=== PATIENT | male | born 1965 | race Caucasian/White ===

== ENCOUNTER 2016-08-06 20:28 | Emergency (ER) | payer OTHER ==
[2016-08-06 20:41] VITALS: PULSE 82; TEMP 98.7; BMI 32.1
--- NOTE | 2016-08-06 20:42 | PDOC ---
[id number]MhRIGGVELOHSHBFVG2VZYGPeEZIOf2zQUDWrXnIONPHrD MfFOVHxDmJhl3YPJBYGX Iq5WPYXCR7Au+jzQNK7L/OgNXgYF5zLJlHpm89f2lcIrTmqvin7YS3h+3Axkt/ UT5klKrC5YCRSepsGp2sFVdU2tGL3iEm0d2yTRHKTQUyenVJGXk7urIyYi8VqNsLYBDPKTbYQIYWl1V0 d6LsNOQUmUjurU2Kv3iUT0xbFEO7cyQAbWI8FLBSWFBafifXhONFUo5BDPANfOoysv7yeMKHyM +vmv5MmtgTJRETACpzqV3Ux4QKQmbUQudNEHZaOSGFVBRL455/ sw60FpQRNjwvmEOlCKWxSOIfWIGESCNK8FHxdKKYGcqqxd1ROJTIrBJrC2/KChKZQvAa6gXmGpt+ va4s2kjZTa+ YRMMnVvbx1ryoLDuWoCKwIRtxIkvjoq92ySFcBRJKGHD7BGRXfuhjGLL3AMS91LVlJAJMdXE8tdOULrw Mfv1A0ulYQUrYqJ7euRdrmEzsrzl3FXDkXqQYM43O71bZ /XOGDS2KMFMqUnGjJioig3/6CVtzyj34mGhgez89HLeHfvtyJkJgF/WDi9MNLKLZoNZuS63prT+ vM1BL4R/zUTlB5jvxExlPlMwUqWeGNrcH694/4DJFAjWSaStboGbjwLJON/ 7lMKaw5kPnNYKiP1NG6z33Y1IHfWqxjDU9HGi/Eo72OUvBNSjZFE9KP1DRjLni9q+Y/9SVFMsdJ+opB/ dfZGjiG/hpSEeKwU2BkANTHuuc4iY4kZwZJQ989lTb5PhPxli/eZNi2TUG1jRmTbBGjZ6a/ Lo3j0WfWKrx5nRLGwo9QUSjXb+tg+1oDwgmdF/dg5trrLbFW2SatAMrXiH1aqqvoH3IsZN8Uqb+ 1zvYJsIZgBapOTYdC79iCroAlJ5JiWvwgOHjbKsCmzpNLlBG/TGR32mmllXCA7oCUo/ IUxHjSn7TiuNIkpxCMLGPNSGSA1TOAXiZ/gHFV+cVZA3yOhLXZHUMBS0BbcEprb== 08/06/16 21:05 Progress Note - Progress Note Progress Note: brief triage assessment patient with hx of htn presents to ED with a brief episode of dizziness which he describes as a weak feeling in his head, no vertigo also noted his tongue felt heavy no weakness or numbness no change in speech pmh htn exam awake and alert, no acute dizziness and no other symptoms currently gait stable heart rr assess nonspecific dizziness into main ed for further evaluation *DC/Admit/Observation/Transfer Diagnosis at time of Disposition: Lightheadedness - Discharge Dispostion Disposition: HOME Condition at time of disposition: Improved - Patient Instructions Additional Instructions: CONTINUE MEDICATIONS PRESCRIBED PLENTY OF FLUIDS SEE YOUR DOCTOR TOMORROW RETURN IF WORSENING OR NEW SYMPTOMS
[2016-08-06] MEDS ORDERED: SODIUM CHLORIDE 500 ML IV STA (20:54)
--- NOTE | 2016-08-06 20:58 | PDOC ---
History of Present Illness - General History Source: Patient Exam Limitations: No Limitations - History of Present Illness Initial Comments: 08/06/16 21:10 The patient is a 50 year old male with significant past medical history of hypertension who presents to the ED with dizziness 1 hour prior to arrival. Patient reports he was in his usual state of health when he experienced some dizziness 2 days ago while driving. He describes dizziness as a electrical current that starts off at the head and radiates down the body, lasting just a few seconds. He also reports some slight blurry vision and tingling to the tongue. He denies slurred speech, headache, or LOC. After his symptoms resolved , he felt weak. Patient decided to go to a pharmacy where he had his blood pressure checked and noted it to be 164/89. Normally his blood pressure is around 130s/80s and he states he is complaint with his medications. Patient was in his usual state of health yesterday. Today, [place] the mall, he started to feel dizzy again and decided to come in the ER for further evaluation. He reports he notes his dizziness occurred a few seconds after getting up. Patient also states he has had constipation for the past few days, which is chronic, and decided to take a laxative today that resulted in a bowel movement. At time of evaluation, patient has complaints of some generalized weakness. The patient denies fever, chills, diaphoresis, cough, SOB, chest pain, and palpitations. The patient denies abdominal pain, nausea, vomiting, and diarrhea. Allergies: NKDA Social History: No alcohol, tobacco, or drug use reported. 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 Past Surgical History: None reported PCP: None reported <Elenita Simpson - Last Filed: 08/06/16 21:13> <Cdoy Sparrow - Last Filed: 08/06/16 21:49> - General Chief Complaint: Lightheaded Stated Complaint: DIZZINESS Time Seen by Provider: 08/06/16 20:31 Past History <Elenita Simpson - Last Filed: 08/06/16 21:13> - Past Medical History HTN: Yes Suicide Attempt (Hx): No - Psycho/Social/Smoking Cessation Hx Suicidal Ideation: No Smoking Status: No Smoking History: Never smoked Number of Cigarettes Smoked Daily: 0 Substance Use Type: None <Cody Sparrow - Last Filed: 08/06/16 21:49> - Past Medical History Allergies/Adverse Reactions: Allergies Allergy/AdvReac Type Severity Reaction Status Date / Time No Known Allergies Allergy Verified 08/06/16 20:37 Home Medications: Ambulatory Orders Telmisartan/Hydrochlorothiazid [Micardis Hct 80-12.5 mg Tablet] 1 each PO DAILY 08/30/13 Review of Systems - Review of Systems Able to Perform ROS?: Yes Comments:: 08/06/16 21:10 +dizziness, blurry vision, tingling in tongue, generalized weakness Absent: fever, chills, diaphoresis, cough, SOB, chest pain, palpitations, abdominal pain, nausea, vomiting, and diarrhea. <Elenita Simpson - Last Filed: 08/06/16 21:13> *Physical Exam - Vital Signs Last Vital Signs Temp Pulse Resp BP Pulse Ox 98.7 F 82 18 160/98 98 08/06/16 20:38 08/06/16 20:38 08/06/16 20:38 08/06/16 20:38 08/06/16 20:38 <Elenita Simpson - Last Filed: 08/06/16 21:13> - Vital Signs Last Vital Signs Temp Pulse Resp BP Pulse Ox 98.7 F 82 18 160/98 98 08/06/16 20:38 08/06/16 20:38 08/06/16 20:38 08/06/16 20:38 08/06/16 20:38 - Physical Exam General Appearance: Yes: Nourished, Appropriately Dressed. No: Apparent Distress HEENT: positive: EOMI, JUSTICE, Normal ENT Inspection, Normal Voice, Symmetrical Neck: positive: Supple. negative: Tender, Carotid bruit Respiratory/Chest: positive: Lungs Clear, Normal Breath Sounds. negative: Chest Tender, Respiratory Distress Cardiovascular: positive: Regular Rhythm, Regular Rate Gastrointestinal/Abdominal: positive: Normal Bowel Sounds, Soft Musculoskeletal: positive: Normal Inspection. negative: CVA Tenderness, Vertebral Tenderness Extremity: positive: Normal Capillary Refill, Normal Range of Motion Integumentary: positive: Normal Color Neurologic: positive: remote sensing engineer II-XII NML intact, Fully Oriented, Alert, Normal Mood/ Affect, Normal Response, Motor Strength 5/5 <Cody Sparrow - Last Filed: 08/06/16 21:49> ED Treatment Course - LABORATORY CBC & Chemistry Diagram: 08/06/16 21:05 08/06/16 21:05 <Cody Sparrow - Last Filed: 08/06/16 21:49> Medical Decision Making - Medical Decision Making 08/06/16 20:56 non specific complaints no vertigo normal neuro exam will check orthostatic since sx present a few seconds after getting up likely d/c 08/06/16 21:48 normal labs (slight BUN elevation) not orthostatic feels well after iv f <Cody Sparrow - Last Filed: 08/06/16 21:49> *DC/Admit/Observation/Transfer - Attestations Scribe Attestion: 08/06/16 21:11 Documentation prepared by Elenita Simpson, acting as medical chemist for Cody Sparrow MD <Elenita Simpson - Last Filed: 08/06/16 21:13> <Cody Sparrow - Last Filed: 08/06/16 21:49> Diagnosis at time of Disposition: Dehydration Hypertension Qualifiers: Hypertension type: other secondary hypertension Qualified Code(s): I15.8 - Other secondary hypertension - Discharge Dispostion Disposition: HOME Condition at time of disposition: Improved - Patient Instructions Additional Instructions: CONTINUE MEDICATIONS PRESCRIBED PLENTY OF FLUIDS SEE YOUR DOCTOR TOMORROW RETURN IF WORSENING OR NEW SYMPTOMS
[2016-08-06 21:24] LABS: MCH 28.7 pg (25.7-33.7); MCHC 33.7 g/dl (32.0-35.9); MEAN PLT VOLUME 10.1 fl (7.5-11.1); PLATELET COUNT 213 K/MM3 (134-434); RDW 13.5 % (11.9-15.9)
[2016-08-06 21:31] VITALS: BP 125/87
[2016-08-06 21:45] LABS: CALCIUM 9.2 mg/dL (8.5-10.1)
== END 2016-08-06 22:08 | disposition home or self-care (01) ==
LOC: JER 20:28
PROC: 3E0337Z Introduction of Electrolytic and Water Balance Substance into Peripheral Vein, Percutaneous Approach (ICD-10-PCS; principal; 2016-08-06)
DX: E86.0 Dehydration (principal); I15.8 Other secondary hypertension
CPT/HCPCS: 36415; 80048; 85027; 96360; 99283-25

== ENCOUNTER 2017-06-28 21:32 | Emergency (ER) | payer OTHER ==
[2017-06-28 21:40] VITALS: BP 149/94; PULSE 85; TEMP 98.6; BMI 34.2
--- NOTE | 2017-06-28 22:35 | PDOC ---
History of Present Illness - General Chief Complaint: Pain, Acute Stated Complaint: LEFT SIDE PAIN Time Seen by Provider: 06/28/17 22:35 History Source: Patient Exam Limitations: No Limitations - History of Present Illness Initial Comments: 06/28/17 22:36 51-year-old male with a history of hypertension presents to the emergency department complaining of left shoulder pain 5 days. Patient states he is right hand dominant. Patient states while lifting heavy bags 5 days ago, he felt an acute sharp nonradiating discomfort to the left shoulder. Pain is described as 6/10 sharp nonradiating intermittent discomfort. The pain is exacerbated on movement and alleviated minimally at rest. Patient denies any head injuries, neck/back pains, extremity numbness or tingling sensation, bladder or bowel dysfunction. Past History - Past Medical History Allergies/Adverse Reactions: Allergies Allergy/AdvReac Type Severity Reaction Status Date / Time No Known Allergies Allergy Verified 06/28/17 21:38 Home Medications: Ambulatory Orders Telmisartan/Hydrochlorothiazid [Micardis Hct 80-12.5 mg Tablet] 1 each PO DAILY 08/30/13 Oxycodone HCl/Acetaminophen [Percocet 5-325 mg Tablet] 1 tab PO Q6H #12 tablet MDD 4 06/29/17 COPD: No HTN: Yes - Suicide/Smoking/Psychosocial Hx Smoking Status: No Smoking History: Never smoked Number of Cigarettes Smoked Daily: 0 Substance Use Type: None Review of Systems - Review of Systems Able to Perform ROS?: Yes Comments:: 06/29/17 02:21 CONSTITUTIONAL: Absent: fever, chills, diaphoresis, generalized weakness, malaise, loss of appetite HEENT: Absent: rhinorrhea, nasal congestion, throat pain, throat swelling, difficulty swallowing, mouth swelling, ear pain, eye pain, visual Changes CARDIOVASCULAR: Absent: chest pain, loss of consciousness, palpitations, irregular heart rate, peripheral edema RESPIRATORY: Absent: cough, shortness of breath, dyspnea with exertion, orthopnea, wheezing, stridor, hemoptysis GASTROINTESTINAL: Absent: abdominal pain, abdominal distension, nausea, vomiting, diarrhea, constipation, melena, hematochezia GENITOURINARY: Absent: dysuria, frequency, urgency, hesitancy, hematuria, flank pain, genital pain MUSCULOSKELETAL: +left shoulder pain Absent: myalgia, arthralgia, joint swelling SKIN: Absent: rash, itching, pallor HEMATOLOGIC/IMMUNOLOGIC: Absent: easy bleeding, easy bruising, lymphadenopathy, frequent infections Is the patient limited Urdu proficient: No *Physical Exam - Vital Signs Last Vital Signs Temp Pulse Resp BP Pulse Ox 98.6 F 85 18 149/94 97 06/28/17 21:38 06/28/17 21:38 06/28/17 21:38 06/28/17 21:38 06/28/17 21:38 - Physical Exam Comments: 06/29/17 02:22 GENERAL: Well developed, well nourished. Awake and alert. No acute distress. HEENT: Normocephalic, atraumatic. PERRLA, EOMI. No conjunctival pallor. Sclera are non- icteric. Moist mucous membranes. Oropharynx is clear. NECK: Supple. Full ROM. No JVD. Carotid pulses 2+ and symmetric, without bruits. No thyromegaly. No lymphadenopathy. CARDIOVASCULAR: Regular rate and rhythm. No murmurs, rubs, or gallops. Distal pulses are 2+ and symmetric. PULMONARY: No evidence of respiratory distress. Lungs clear to auscultation bilaterally. No wheezing, rales or rhonchi. MUSCULOSKELETAL Left shoulder/ biceps/triceps intact +pain on palp/ +left drop arm, neg obv deformities Excluding left shoulder/Normal range of motion at all joints. No bony deformities or tenderness. No CVA tenderness. EXTREMITIES: No cyanosis. No clubbing. No edema. No calf tenderness. SKIN: Warm and dry. Normal capillary refill. No rashes. No jaundice. NEUROLOGICAL: Alert, awake, appropriate. Cranial nerves 2-12 intact. No deficits to light touch and temperature in face, upper extremities and lower extremities. No motor deficits in the in face, upper extremities and lower extremities. Normoreflexic in the upper and lower extremities. Normal speech. Toes are down- going bilaterally. Gait is normal without ataxia. Medical Decision Making - Medical Decision Making 06/29/17 02:48 51-year-old male who is right hand dominant presents to the emergency department complaining of left shoulder pain after lifting heavy bags 3 days ago. Patient denies numbness or tingling sensation. Biceps/triceps are intact. X -ray shows negative fracture or dislocation. Patient will be discharged on pain medication and advised to follow with Ortho. *DC/Admit/Observation/Transfer Diagnosis at time of Disposition: Rotator cuff (capsule) sprain Qualifiers: Encounter type: initial encounter Laterality: left Qualified Code(s): S43.422A - Sprain of left rotator cuff capsule, initial encounter - Discharge Dispostion Disposition: HOME Condition at time of disposition: Stable Admit: No - Prescriptions Prescriptions: Oxycodone HCl/Acetaminophen [Percocet 5-325 mg Tablet] 1 tab PO Q6H #12 tablet MDD 4 - Referrals Referrals: Geovany Ni MD [Staff Physician] - - Patient Instructions Printed Discharge Instructions: How to Use a Sling, DI for Rotator Cuff Injury Additional Instructions: Ice; 20 mins on alternating with 20 mins off for 48 hours while awake. Rest Elevate Follow up with your orthopedic surgeon or the one listed on the discharge form. Return to the ER for severe/persistent/worsening symptoms, extremity numbness/ tingling sensation. Tylenol or Motrin as needed for mild pain Percocet 5/325 1 tablet every 6 hours as needed for severe pain - Post Discharge Activity
== END 2017-06-29 02:35 | disposition home or self-care (01) ==
LOC: JER 21:32
DX: S43.422A Sprain of left rotator cuff capsule, initial encounter (principal); X50.0XXA Overexertion from strenuous movement or load, initial encounter; X50.9XXA Other and unspecified overexertion or strenuous movements or postures, initial encounter; Y93.89 Activity, other specified; Y92.89 Other specified places as the place of occurrence of the external cause; I10 Essential (primary) hypertension
CPT/HCPCS: 73030-TC-LT; 99282-25

== ENCOUNTER 2018-06-04 21:21 | Emergency (ER) | payer OTHER ==
[2018-06-04 21:35] VITALS: BP 138/100; PULSE 79; TEMP 98.9; BMI 34.5
--- NOTE | 2018-06-04 21:38 | PDOC ---
Rapid Medical Evaluation Chief Complaint: Abscess Boil Medical Evaluation: Allergies Allergy/AdvReac Type Severity Reaction Status Date / Time No Known Allergies Allergy Verified 06/04/18 21:29 Vital Signs Temp Pulse Resp BP Pulse Ox 98.9 F 79 16 138/100 99 06/04/18 21:29 06/04/18 21:29 06/04/18 21:29 06/04/18 21:29 06/04/18 21:29 06/04/18 21:37 06/04/18 21:33 06/04/18 19:49 I have performed a brief in-person evaluation of this patient. The patient presents with a chief complaint of: multiple abscesses, h/o HTN Pertinent physical exam findings: stable, defer to ED I have ordered the following:nothing The patient will proceed to the ED for further evaluation Discharge Disposition - Diagnosis Abscess - Referrals - Patient Instructions - Post Discharge Activity
--- NOTE | 2018-06-04 21:45 | PDOC ---
History of Present Illness - General Chief Complaint: Abscess Boil Stated Complaint: RASH Time Seen by Provider: 06/04/18 21:45 History Source: Patient Exam Limitations: No Limitations - History of Present Illness Initial Comments: 06/04/18 22:08 52 year old male with PMH HTN presented to ED for multiple abscesses. Pt complained of abscess to left axilla, left lower quandrant, right anterior chest. Pt stated x3 weeks ago the LLQ abscess was drained, pt was given antibiotics, and it healed, currently no pain from this area. He stated the left axilla abscess has been increasing in size x1 week, associated with pain. The right anterior chest wall has been increasing in size for 3 days. Pt denied fever, chills, vomiting, lightheadedness, chest pain, shortness of breath, abdominal pain or any other symptoms. Pt was last seen by his PCP x3 weeks ago. Past History - Past Medical History Allergies/Adverse Reactions: Allergies Allergy/AdvReac Type Severity Reaction Status Date / Time No Known Allergies Allergy Verified 06/04/18 21:29 Home Medications: Ambulatory Orders Telmisartan/Hydrochlorothiazid [Micardis Hct 80-12.5 mg Tablet] 1 each PO DAILY 08/30/13 COPD: No HTN: Yes - Immunization History Immunization Up to Date: Yes - Suicide/Smoking/Psychosocial Hx Smoking Status: No Smoking History: Never smoked Have you smoked in the past 12 months: No Number of Cigarettes Smoked Daily: 0 Hx Alcohol Use: No Drug/Substance Use Hx: No Substance Use Type: None Review of Systems - Review of Systems Able to Perform ROS?: Yes Comments:: 06/04/18 22:10 General: denied fever, chills, night sweats, generalized weakness. HEENT: denied sore throat, rhinorrhea, ear pain. Heart: denied chest pain, palpitations, syncope, lower extremity swelling, diaphoresis. Respiratory: denied shortness of breath, cough, sputum production, hemoptysis. Abdomen: denied abdominal pain, nausea, vomiting, diarrhea, constipation, blood in stool. : denied dysuria, increased urinary frequency, hematuria, urinary incontinence , flank pain. Back: denied back pain. Musculoskeletal: denied joint pain, muscle pain, joint swelling. Neurological: denied headache, dizziness, numbness, tingling, weakness. Skin: admitted to abscesses. *Physical Exam - Vital Signs Last Vital Signs Temp Pulse Resp BP Pulse Ox 98.9 F 79 16 138/100 99 06/04/18 21:29 06/04/18 21:29 06/04/18 21:29 06/04/18 21:29 06/04/18 21:29 - Physical Exam Comments: 06/04/18 22:11 Constitutional: Well-nourished, Well-developed, appearing stated age. HEENT: head is normocephalic, atraumatic. EOMI. PERRLA. Neck: supple. Full ROM. Heart: regular rhythm. no murmurs, rubs or gallops. Lungs: clear to auscultation bilaterally. no crackles, rhonchi or wheezing. no stridor. Abdomen: soft, nontender. normal bowel sounds. no rebound, guarding, masses. Extremities: Peripheral pulses intact. No lower extremity edema. Neurological: CN 2-12 grossly intact. Moves all four extremities. Psych: awake, alert, oriented x3. Follows commands. Answers questions appropriately. Skin: 2x3 cm abscess to left axilla, indurated, with 6x5 cm area of surrounding erythema. 2x1 cm area of induration to LLQ, no surrounding erythema. 3x1 cm area of erythema to right anterior chest wall, no fluctuance, no induration. Moderate Sedation - Procedure Monitoring Vital Signs: Procedure Monitoring Vital Signs Temperature 98.9 F 06/04/18 21:29 Pulse Rate 79 06/04/18 21:29 Respiratory Rate 16 06/04/18 21:29 Blood Pressure 138/100 06/04/18 21:29 O2 Sat by Pulse Oximetry (%) 99 06/04/18 21:29 Procedures - Incision and Drainage I&D Site: Left: Axilla Betadine cleansed: Yes Anesthesia: 1% Lidocaine Volume(ml): 4 Blade Size: 11 Attempts: 1 Plain Packing: No Dressing: Yes (Bacitracin with gauze over top) - Bedside Ultrasound Bedside Ultrasound: Skin Other: See MDM Medical Decision Making - Medical Decision Making 06/04/18 22:12 52 year old male with PMH HTN presented to ED for abscesses. Initial Vital Signs Temp Pulse Resp BP Pulse Ox 98.9 F 79 16 138/100 99 06/04/18 21:29 06/04/18 21:29 06/04/18 21:29 06/04/18 21:29 06/04/18 21:29 Afebrile. No tachycardia. No tachypnea. Mild hypertension. No hypoxia on room air. Bedside US performed: LLQ: no cobblestoning. no hypodense fluid collection. Left axilla: 0.9x0.67 hypodense fluid collection consistent with abscess, with cobblestoning. Right anterior chest wall: 0.17x0.25 cm hypodense fluid collection, with very minimal if any cobblestoning. LLQ abscess healed, no flucutance, no hypodense fluid collection on US. No need for I&D of this area. Right anterior chest wall abscess in early stages, no fluctuance or induration, minimal hypodense fluid collection on US. No need for I&D of this area at this time. Left axilla abscess will need I&D at this time. No systemic symptoms, no fever, no tachycardia, no hypotension. No indication for lab work at this time. Will send wound culture. No prior cultures to compare. 06/04/18 22:50 Left axilla abscess I&D procedure performed without difficulty. Area was cleansed with beta dine. 4 cc of 1% lidocaine was injected for local anesthesia. An 11 blade was used to make a single incision. Dmitri pus and blood was expressed. The pocket was investigated with a needle lumber driver to break up any loculations. A wound culture was sent. The wound was covered with bacitracin and gauze. No packing was placed. No antibiotics to be prescribed. Pt to be discharged with instruction for PCP follow up and general surgery referral. *DC/Admit/Observation/Transfer Diagnosis at time of Disposition: Abscess - Discharge Dispostion Disposition: HOME Condition at time of disposition: Improved Decision to Admit order: No - Referrals Referrals: Gregory Licea MD [Staff Physician] - Ashley Bowman MD [Staff Physician] - Ori Gross MD [Staff Physician] - Darren Raza MD [Staff Physician] - Nicolas Bryan MD [Staff Physician] - Radha Michelle MD [Staff Physician] - Laz Meng MD [Staff Physician] - Eugene Peterson MD [Staff Physician] - - Patient Instructions Printed Discharge Instructions: DI for Incision and Drainage of a Skin Abscess Additional Instructions: You were seen today for abscesses. You had an incision and drainage (I&D) of the abscess to your left arm pit. Keep the area 100% dry for 24-48 hours. Change the dressing daily for [address] neosporin or gauze over the wound and cover with gauze. Follow up with your primary care doctor in 1-2 days. Follow up with a general surgeon in 1-2 days, I have provided you with referrals for multiple general surgeons affiliated with our hospital. Return to the Emergency Department for increasing pain, increasing swelling, increasing wellness, fever, nausea/vomiting, abdominal pain, chest pain, shortness of breath, lightheadedness like you may pass out, or any other new, worsening or concerning symptoms. Take Ibuprofen over the counter for pain, take as advised on label. - Post Discharge Activity Forms/Work/School Notes: Back to Work
--- NOTE | 2018-06-04 23:06 | PDOC ---
Attending Attestation - HPI HPI: 06/04/18 23:06 The patient is a 52 year old male, with a significant past medical history of HTN and bilateral axilla abscesses, who presents to the ED complaining of bilateral axilla abscesses. He reports that he has had a left axilla abscess for the past week and has noticed some erythema in the area. He also reports a right sided abscess on his anterior chest wall for the past 2-3 days. He notes that he had right sided axilla abscess drained 3 weeks ago. He does not report any other abscesses at the current moment. The patient denies chest pain, shortness of breath, headache and dizziness. Denies fever, chills, nausea, vomiting, diarrhea or constipation. Allergies: None Past surgical history: None reported Social History: No alcohol, tobacco or drug use reported <Nicolas Romo - Last Filed: 06/04/18 23:06> - Resident Resident Name: Anisha Mitchell - ED Attending Attestation I have performed the following: I have examined & evaluated the patient, The case was reviewed & discussed with the resident, I agree w/resident's findings & plan, Exceptions are as noted - Physicial Exam PE: 06/05/18 01:24 Agree with exam as documented by resident - Medical Decision Making 06/05/18 01:24 Uncomplicated abscess w/o surrounding cellulitis I and D f/u gs <Angel Eagle - Last Filed: 06/05/18 01:25>
== END 2018-06-04 23:27 | disposition home or self-care (01) ==
LOC: JER 21:21
PROC: 0H9CXZZ Drainage of Left Upper Arm Skin, External Approach (ICD-10-PCS; principal; 2018-06-04)
DX: L02.412 Cutaneous abscess of left axilla (principal); I10 Essential (primary) hypertension
CPT/HCPCS: 10060; 87070; 87186; 87205; 99281-25

== ENCOUNTER 2024-12-26 11:22 | Emergency (ER) | payer OTHER ==
[2024-12-26 11:37] VITALS: BP 138/83; PULSE 68; RESP 18; TEMP 98.2; BMI 32.9
[2024-12-26] MEDS ORDERED: ACETAMINOPHEN 500 MG TABLET (FP) ONE (12:18)
[2024-12-26] MEDS ORDERED: KETOROLAC TROMETHAMINE 30 MG/1 ML VIAL ONE (12:18)
[2024-12-26] MEDS ORDERED: LIDOCAINE 4% PATCH TP ONE (12:18)
[2024-12-26] MEDS: LIDOCAINE 4% PATCH TP ONE (12:23)
[2024-12-26] MEDS: KETOROLAC TROMETHAMINE 30 MG/1 ML VIAL IM ONE (12:23)
[2024-12-26] MEDS: ACETAMINOPHEN 500 MG TABLET (FP) PO ONE (12:24)
[2024-12-26 13:32] LABS: HCV DIAGNOSTIC IN-HOUSE W/RFLX NON-REACTIVE (NONREACTIVE)
[2024-12-26 13:34] LABS: HIV INTERPRETATION NEGATIVE (NEGATIVE)
[2024-12-26] MEDS ORDERED: LIDOCAINE PATCH REMOVAL MC SCH (22:00)
== END 2024-12-26 13:28 | disposition home or self-care (01) ==
LOC: JER 11:22 → JERFT 11:22
PROC: 3E0233Z Introduction of Anti-inflammatory into Muscle, Percutaneous Approach (ICD-10-PCS; principal; 2024-12-26)
DX: S46.012A Strain of muscle(s) and tendon(s) of the rotator cuff of left shoulder, initial encounter (principal); X50.0XXA Overexertion from strenuous movement or load, initial encounter
CPT/HCPCS: 36415; 73030-TC-LT-FY; 86803; 87389; 99284-25